=== PATIENT | male | born 1960 | race Caucasian/White ===

== ENCOUNTER 2022-06-11 17:56 | Emergency (ER) | payer OTHER ==
[~2022-06-11] VITALS: Ht 162.6 cm; Wt 65.8 kg
[~2022-06-11 17:56] MED LIST: AMOX1XR PO; CEPH500 PO; HYDACE5 PO; PENVK500 PO; PRED20 PO; SULTRIDS PO
[2022-06-11] MEDS ORDERED: CEPH500 PO (19:15)
== END 2022-06-11 19:25 | disposition home or self-care (01) ==
LOC: ER 17:56
DX: L03.116 Cellulitis of left lower limb (principal); F17.210 Nicotine dependence, cigarettes, uncomplicated
CPT/HCPCS: 99283; A9270

== ENCOUNTER → 2024-02-29 | Outpatient (CLI) | payer OTHER ==
[2024-02-29 16:15] LABS: BASOPHILS ABSOLUTE AUTO 0.05 K/mm3 (0.00-0.23); BASOPHILS PERCENT AUTO 1 % (0-2); EOSINOPHILS ABSOLUTE AUTO 0.52 K/mm3 (0.00-0.68); EOSINOPHILS PERCENT AUTO 6 % (0-6); Hematocrit 40.8 % (37.0-53.0); Hemoglobin 13.5 g/dL (13.5-17.5); IMMATURE GRAN ABSOLUTE AUTO 0.01 K/mm3 (0.00-0.10); IMMATURE GRAN PERCENT AUTO 0 % (0-1); LYMPHOCYTES ABSOLUTE AUTO 2.79 K/mm3 (0.84-5.20); LYMPHOCYTES PERCENT AUTO 32 % (21-46); MONOCYTES ABSOLUTE AUTO 0.65 K/mm3 (0.16-1.47); MONOCYTES PERCENT AUTO 8 % (4-13); Mean Corpuscular HGB 31.1 pg (26.0-34.0); Mean Corpuscular HGB Conc 33.1 g/dL (31.5-36.5); Mean Corpuscular Volume 94 fL (80-100); Mean Platelet Volume 8.6 fL (9.1-12.4); NEUTROPHILS ABSOLUTE AUTO 4.59 K/mm3 (1.96-9.15); NEUTROPHILS PERCENT AUTO 53 % (41-73); Platelet Count 253 K/mm3 (150-400); RDW Coefficient Variation 13.6 % (11.7-14.2); RDW Standard Deviation 47.2 fL (35.1-46.3); Red Blood Cell Count 4.34 M/mm3 (4.30-5.90); White Blood Cell Count 8.61 K/mm3 (4.00-11.30)
[2024-02-29 16:36] LABS: Albumin, Blood 3.9 g/dL (3.4-5.0); Bilirubin, Total 0.2 mg/dL (0.1-1.0); Bun/Creatinine Ratio 11.4 (12.0-20.0); Calcium, Blood 8.9 mg/dL (8.5-10.1); Creatinine, Blood 0.88 mg/dL (0.60-1.20); Potassium, Blood 4.1 mmol/L (3.5-5.5); Thyroid Stimulating Hormone 0.699 uIU/mL (0.360-4.800); Total Protein, Blood 7.9 g/dL (6.4-8.2)
== END ==
LOC: LAB 15:44 → LAB SHORT 16:11
PROVIDERS: Physician Assistant
DX: R00.2 Palpitations (principal); R53.1 Weakness
CPT/HCPCS: 80053; 84443; 84484; 85025

== ENCOUNTER 2024-07-03 17:32 | Observation (INO) | payer OTHER ==
[~2024-07-03] VITALS: Ht 165.1 cm; Wt 59.0 kg
[2024-07-03 20:58] LABS: BASOPHILS ABSOLUTE AUTO 0.06 K/mm3 (0.00-0.23); BASOPHILS PERCENT AUTO 1 % (0-2); EOSINOPHILS ABSOLUTE AUTO 0.36 K/mm3 (0.00-0.68); EOSINOPHILS PERCENT AUTO 5 % (0-6); Hematocrit 43.8 % (37.0-53.0); Hemoglobin 14.6 g/dL (13.5-17.5); IMMATURE GRAN ABSOLUTE AUTO 0.02 K/mm3 (0.00-0.10); IMMATURE GRAN PERCENT AUTO 0 % (0-1); LYMPHOCYTES ABSOLUTE AUTO 2.93 K/mm3 (0.84-5.20); LYMPHOCYTES PERCENT AUTO 37 % (21-46); MONOCYTES ABSOLUTE AUTO 0.66 K/mm3 (0.16-1.47); MONOCYTES PERCENT AUTO 8 % (4-13); Mean Corpuscular HGB 30.9 pg (26.0-34.0); Mean Corpuscular HGB Conc 33.3 g/dL (31.5-36.5); Mean Corpuscular Volume 93 fL (80-100); NEUTROPHILS ABSOLUTE AUTO 3.87 K/mm3 (1.96-9.15); NEUTROPHILS PERCENT AUTO 49 % (41-73); Platelet Count 216 K/mm3 (150-400); RDW Coefficient Variation 12.6 % (11.7-14.2); RDW Standard Deviation 43.2 fL (35.1-46.3); Red Blood Cell Count 4.73 M/mm3 (4.30-5.90)
[2024-07-03 21:26] LABS: Alanine Aminotransfer (ALT/SGP 17 U/L (12-78); Albumin, Blood 4.4 g/dL (3.4-5.0); Albumin/Globulin Ratio 1.2 (0.8-1.8); Alk Phos 83 U/L (50-136); Anion Gap 12 mmol/L (3-11); Aspartate Aminotrans (AST/SGOT 19 U/L (12-37); Bilirubin, Total 0.6 mg/dL (0.1-1.0); Blood Urea Nitrogen 16 mg/dL (8-24); Bun/Creatinine Ratio 16.7 (12.0-20.0); CO2, Blood 26 mmol/L (21-32); Chloride, Blood 103 mmol/L (98-108); Creatinine, Blood 0.96 mg/dL (0.60-1.20); Ethanol (Alcohol), Blood, Med <3 mg/dL; Globulin, Blood 3.7 g/dL (2.2-4.0); Glomerular Filtration Rate 88 (60-); Glucose, Blood 94 mg/dL (70-99); Potassium, Blood 4.4 mmol/L (3.5-5.5); Salicylate <1.7 mg/dL (2.8-20.0); Sodium, Blood 137 mmol/L (136-145); Total Protein, Blood 8.1 g/dL (6.4-8.2)
[2024-07-03 21:27] LABS: Acetaminophen, Random <2.0 ug/mL (10.0-30.0)
[2024-07-03 21:37] LABS: Source, Urine Clean Catch
[2024-07-03 22:03] LABS: Bilirubin, Urine Neg (Neg); Blood, Urine 2+ (Neg); Glucose Qualitative, Urine Neg (Neg); Ketones, Urine 2+ (Neg); Leukocyte Esterase, Urine Neg (Neg); Nitrite, Urine Neg (Neg); Protein, Urine 2+ (Neg); Urobilinogen, Urine NORM (Normal)
[2024-07-03 22:10] LABS: Color, Urine Yellow (P-Yellow)
[2024-07-03 22:11] LABS: Appearance, Urine Clear (Clear)
[2024-07-03 22:12] LABS: Bacteria Few /hpf; Mucus Light (0-Heavy); Red Blood Cells, Urine 0-2 /hpf (0-2); Squamous Epithelial Cells Few /hpf (Few); White Blood Cells, Urine 0-2 /hpf (0-5)
[2024-07-03 22:24] LABS: U Amphetamine Screen Not Detected; U Barbituate Screen Not Detected; U Benzodiazapine Screen Not Detected; U Buprenorphine Screen Not Detected; U Cannabinoids Screen Not Detected; U Cocaine Screen Not Detected; U Methadone Screen Not Detected; U Methamphetamine Screen Not Detected; U Opiates Screen Not Detected; U Oxycodone Screen Not Detected; U Phencyclidine Screen Not Detected
[2024-07-04] MEDS ORDERED: Melatonin 3 MG Tab PO ONE (00:15)
[2024-07-04 10:39] VITALS: BP 149/92
[2024-07-04 12:52] LABS: Free Thyroxine 0.96 ng/dL (0.70-1.60); Thyroid Stimulating Hormone 0.71 uIU/mL (0.360-4.800)
== END 2024-07-04 15:30 | disposition other institution (70) ==
LOC: ER 17:32 → EOR 17:33
PROVIDERS: Emergency Medicine; Physician Assistant; ADMIT Student in an Organized Health Care Education/Training Program
DX: F33.3 Major depressive disorder, recurrent, severe with psychotic symptoms (principal); F19.10 Other psychoactive substance abuse, uncomplicated; R45.851 Suicidal ideations; F17.210 Nicotine dependence, cigarettes, uncomplicated; Z79.899 Other long term (current) drug therapy
CPT/HCPCS: 36415; 70450; 80053; 80320; 81001; 84439; 84443; 85025; 93005; 93010; 99285-25; A9270; G0378; G0480

== ENCOUNTER 2024-07-04 13:00 | Inpatient (IN) | payer OTHER ==
[~2024-07-04] VITALS: Wt 158.0 kg
[2024-07-04] MEDS ORDERED: OLANZapine ODT 5 MG Tab MM PRN (14:30)
[2024-07-04] MEDS ORDERED: DiphenhydrAMINE HCl 50 MG/ML 1ML Vial IM PRN (14:30)
[2024-07-04] MEDS ORDERED: LORazepam 2 MG/ML 1ML Injection IM PRN (14:30)
[2024-07-04] MEDS ORDERED: Haloperidol Lactate Inj. 5 MG/ML Injection IM PRN (14:35)
[2024-07-04] MEDS ORDERED: FLU VACC TS2024-25(6MOS UP)/PF 45 MCG/0.5 ML SYRINGE IM SCH (14:35)
[2024-07-04 20:55] VITALS: BP 185/74
[2024-07-05 17:36] VITALS: BP 143/103
[2024-07-05 19:06] VITALS: BP 125/93
[2024-07-05] MEDS ORDERED: OLANZapine 5 MG Tab PO SCH (21:00)
[2024-07-06 08:44] VITALS: BP 149/107
[2024-07-06] MEDS ORDERED: Multivitamins/Minerals TAB PO SCH (12:33)
[2024-07-06] MEDS ORDERED: HydrALAZINE HCl 10 MG Tab PO PRN (14:00)
[2024-07-06 17:28] VITALS: BP 133/79
[2024-07-06] MEDS ORDERED: OLANZapine 5 MG Tab PO SCH (21:00)
[2024-07-06 21:55] VITALS: BP 151/100
[2024-07-07 07:50] VITALS: BP 118/54
[2024-07-07] MEDS ORDERED: Lisinopril 10 MG Tab PO SCH (08:00)
[2024-07-07] MEDS ORDERED: Ibuprofen 400 MG Tab PO PRN (11:00)
[2024-07-07 18:56] VITALS: BP 118/54
[2024-07-07 19:46] VITALS: BP 99/64
[2024-07-08 08:28] VITALS: BP 104/74
[2024-07-08 08:55] VITALS: BP 130/90
[2024-07-08] MEDS ORDERED: Lisinopril 5 MG Tab PO SCH (09:00)
[2024-07-08] MEDS ORDERED: OLANZapine 5 MG Tab PO SCH (21:00)
[2024-07-08 22:09] VITALS: BP 88/64
[2024-07-09 08:08] VITALS: BP 112/71
[2024-07-09 20:55] VITALS: BP 120/82
[2024-07-10 08:37] VITALS: BP 121/94
[2024-07-10 20:12] VITALS: BP 109/76
[2024-07-11 09:38] VITALS: BP 118/75
[2024-07-11 20:16] VITALS: BP 123/79
[2024-07-11] MEDS ORDERED: Mirtazapine 15 MG SoluTab PO SCH (21:00)
[2024-07-12 08:12] VITALS: BP 110/83
[2024-07-12 21:12] VITALS: BP 157/97
[2024-07-13 08:00] VITALS: BP 141/83
[2024-07-13 20:33] VITALS: BP 133/110
[2024-07-14 08:36] VITALS: BP 120/110
[2024-07-14 08:37] VITALS: BP 120/110
[2024-07-14 09:00] VITALS: BP 95/78
[2024-07-14 17:13] VITALS: BP 141/95
[2024-07-14 20:53] VITALS: BP 119/82
[2024-07-15 08:14] VITALS: BP 109/65
[2024-07-15 23:16] VITALS: BP 139/94
[2024-07-16 08:08] VITALS: BP 110/73
[2024-07-16] MEDS ORDERED: Docusate Sodium 100 MG Cap PO ONE (11:25)
[2024-07-17 08:08] VITALS: BP 133/85
[2024-07-17] MEDS ORDERED: Docusate Sodium 100 MG Cap PO SCH (09:00)
[2024-07-17 20:14] VITALS: BP 105/66
[2024-07-18 08:19] VITALS: BP 91/73
[2024-07-18] MEDS ORDERED: Polyethylene Glycol 3350 17 gm PO SCH (18:10)
[2024-07-18 21:50] VITALS: BP 116/102
[2024-07-19 08:01] VITALS: BP 141/91
[2024-07-20 00:34] VITALS: BP 96/71
[2024-07-20 07:52] VITALS: BP 110/78
[2024-07-20 21:28] VITALS: BP 113/83
[2024-07-21 08:00] VITALS: BP 131/88
[2024-07-21 19:38] VITALS: BP 116/74
[2024-07-22 08:14] VITALS: BP 103/90
[2024-07-22 20:27] VITALS: BP 96/79
[2024-07-23 08:00] VITALS: BP 121/86
[2024-07-23 22:08] VITALS: BP 108/75
[2024-07-24 08:08] VITALS: BP 117/83
[2024-07-24 20:19] VITALS: BP 137/90
[2024-07-25 08:07] VITALS: BP 114/87
[2024-07-26 08:07] VITALS: BP 118/83
[2024-07-26 21:14] VITALS: BP 108/86
[2024-07-27 08:13] VITALS: BP 133/99
[2024-07-28 00:38] VITALS: BP 109/82
[2024-07-28 08:01] VITALS: BP 137/86
[2024-07-28 21:47] VITALS: BP 106/81
[2024-07-29 09:07] VITALS: BP 113/75
[2024-07-29 20:50] VITALS: BP 118/87
[2024-07-30 08:14] VITALS: BP 116/95
[2024-07-30 22:07] VITALS: BP 123/89
[2024-07-31 07:34] VITALS: BP 134/88
[2024-07-31 20:38] VITALS: BP 132/91
[2024-08-01 08:10] VITALS: BP 136/98
[2024-08-01 21:05] VITALS: BP 127/82
[2024-08-02 20:23] VITALS: BP 139/87
[2024-08-03 20:34] VITALS: BP 115/84
[2024-08-04 08:07] VITALS: BP 127/88
[2024-08-04 08:35] VITALS: BP 127/88
[2024-08-04 22:15] VITALS: BP 128/94
[2024-08-05 08:07] VITALS: BP 136/88
[2024-08-06 01:52] VITALS: BP 133/95
[2024-08-06 21:34] VITALS: BP 130/80
[2024-08-07 07:47] VITALS: BP 137/110
[2024-08-07 20:35] VITALS: BP 126/99
[2024-08-08 08:09] VITALS: BP 129/102
[2024-08-08 20:53] VITALS: BP 129/118
[2024-08-09] MEDS ORDERED: Polyethylene Glycol 3350 17 gm PO PRN (07:41)
[2024-08-09 08:03] VITALS: BP 135/95
[2024-08-09 21:48] VITALS: BP 140/90
[2024-08-10 08:08] VITALS: BP 134/103
[2024-08-11 07:19] LABS: CHOL/HDL RATIO 2.6; Cholesterol 174 mg/dL (50-200); HDL Cholesterol 67 mg/dL (>39); LDL/HDL RATIO 1.3; Low Density Lipoprotein Chol 89 mg/dL (0-110); Triglycerides 92 mg/dL (30-160); Very Low Density Lipoprot Chol 18 mg/dL (6-32)
[2024-08-11 08:06] VITALS: BP 140/91
[2024-08-11] MEDS ORDERED: Lisinopril 10 MG Tab PO SCH (09:00)
[2024-08-11 21:08] VITALS: BP 130/91
[2024-08-12 20:47] VITALS: BP 124/106
[2024-08-12 20:48] VITALS: BP 129/111
[2024-08-13 08:18] VITALS: BP 134/113
[2024-08-13 20:34] VITALS: BP 134/112
[2024-08-14 07:31] VITALS: BP 128/92
[2024-08-14 20:27] VITALS: BP 129/89
[2024-08-15 07:20] VITALS: BP 132/99
[2024-08-15 21:26] VITALS: BP 150/102
[2024-08-16 08:14] VITALS: BP 138/78
[2024-08-16] MEDS ORDERED: AmLODIPine Besylate 5 MG Tab PO SCH (09:00)
[2024-08-16] MEDS ORDERED: Lisinopril 5 MG Tab PO SCH (09:00)
[2024-08-17 00:28] VITALS: BP 128/93
[2024-08-17 08:05] VITALS: BP 133/113
[2024-08-17 08:46] VITALS: BP 140/85
[2024-08-17] MEDS ORDERED: Methyl Salicylate/Menth/Camph 57 GM TUBE TOP PRN (10:20)
[2024-08-17 22:08] VITALS: BP 142/92
[2024-08-18 07:32] VITALS: BP 113/89
[2024-08-18 08:48] VITALS: BP 113/89
[2024-08-18] MEDS ORDERED: Lisinopril 10 MG Tab PO SCH (09:00)
[2024-08-18 21:22] VITALS: BP 139/97
[2024-08-19 08:24] VITALS: BP 149/111
[2024-08-19 10:19] VITALS: BP 134/100
[2024-08-19] MEDS ORDERED: Melatonin 5 MG Tablet PO PRN (10:40)
[2024-08-19 23:41] VITALS: BP 132/104
[2024-08-20] MEDS ORDERED: AmLODIPine Besylate 5 MG Tab PO SCH (09:00)
[2024-08-20 17:24] VITALS: BP 125/98
[2024-08-20 21:51] VITALS: BP 135/94
[2024-08-21 08:25] VITALS: BP 143/95
[2024-08-21 20:37] VITALS: BP 125/98
[2024-08-22 08:13] VITALS: BP 118/82
[2024-08-22 21:10] VITALS: BP 141/95
[2024-08-23 08:02] VITALS: BP 146/99
[2024-08-23 20:55] VITALS: BP 144/93
[2024-08-24 07:47] VITALS: BP 145/98
[2024-08-24] MEDS ORDERED: Calcium Carbonate 500 MG Tab Chew PO PRN (15:05)
[2024-08-25 02:54] VITALS: BP 125/89
[2024-08-25 08:53] VITALS: BP 132/95
[2024-08-25 19:30] VITALS: BP 129/90
[2024-08-25] MEDS ORDERED: TraZODone HCl 50 MG Tab PO ONE (21:45)
[2024-08-25] MEDS ORDERED: TraZODone HCl 50 MG Tab PO PRN (21:50)
[2024-08-26 08:05] VITALS: BP 134/96
[2024-08-26 20:42] VITALS: BP 128/92
[2024-08-27] MEDS ORDERED: AMLO10 PO (13:40)
[2024-08-27] MEDS ORDERED: DOCU100 PO (13:45)
[2024-08-27] MEDS ORDERED: METSALMENC TOP (13:45)
[2024-08-27] MEDS ORDERED: HYDR10 PO (13:46)
[2024-08-27] MEDS ORDERED: Prinivil10 MG PO (13:46)
[2024-08-27] MEDS ORDERED: MIRT15 PO (13:46)
[2024-08-27] MEDS ORDERED: OLAN7.5 PO (13:47)
[2024-08-27] MEDS ORDERED: TRAZ50 PO (13:47)
== END 2024-08-27 14:38 | disposition home or self-care (01) | DRG 885 ==
LOC: BHU 13:00
PROVIDERS: Student in an Organized Health Care Education/Training Program; ADMIT Psychiatry & Neurology Psychiatry
DX: F33.42 Major depressive disorder, recurrent, in full remission (principal); F03.93 Unspecified dementia, unspecified severity, with mood disturbance; R45.851 Suicidal ideations; Z59.00 Homelessness unspecified; F19.11 Other psychoactive substance abuse, in remission; I10 Essential (primary) hypertension; Z79.899 Other long term (current) drug therapy; J44.9 Chronic obstructive pulmonary disease, unspecified; Z87.19 Personal history of other diseases of the digestive system; Z98.890 Other specified postprocedural states; Z85.46 Personal history of malignant neoplasm of prostate
CPT/HCPCS: 36415; 80061; 83036; A9270